=== PATIENT | female | born 2000 | race Caucasian/White ===

== ENCOUNTER 2023-11-03 14:08 | Emergency (ER) | payer SELFPAY ==
[2023-11-03 14:13] VITALS: BP 122/81
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
[2023-11-03] MEDS: MOTRIN 600 MG PO (17:03)
== END 2023-11-03 19:21 | disposition home or self-care (01) ==
LOC: EMR 14:08
PROVIDERS: EMERGENCY PHYSICIAN Emergency Medicine; FAMILY PHYSICIAN Pediatrics
DX: S00.01XA Abrasion of scalp, initial encounter (principal); S09.90XA Unspecified injury of head, initial encounter; S80.212A Abrasion, left knee, initial encounter; S80.02XA Contusion of left knee, initial encounter; V43.52XA Car driver injured in collision with other type car in traffic accident, initial encounter
CPT/HCPCS: 99283

== ENCOUNTER 2024-02-16 09:07 | Emergency (ER) | payer OTHER, SELFPAY ==
[2024-02-16 09:22] VITALS: BP 126/82
--- NOTE | 2024-02-16 10:17 | ED.GENMED ---
History of Present Illness
General
Chief Complaint: Medication Reaction
Source: patient
Exam Limitations: none
Time Seen by Provider: 02/16/24 09:54
History of Present Illness
History of Present Illness:
23 year old female presents with complaints of nausea fatigue and lightheadedness. This started shortly after starting Bactrim for her cyst on the right breast. She states the cyst drained. She feels that is improving. She denies any significant
pain. No measurable fever. She has never had Bactrim before but 3 doses into it she developed the symptoms. She denies a rash otherwise. No other complaints at this time
Past History
Past History
ED Past Medical History: None
ED Past Surgical History: Other (Myringotomy tubes)
Phy Exam
Physical Exam
Physical Exam:
General: Well-appearing female no acute respiratory distress
HEENT: Normocephalic atraumatic
Heart: Regular rate and rhythm no murmur
Lungs: Clear no wheeze
Skin: Erythema noted on the inferior surface of the right breast. No fluctuance or induration. Nontender. There is healing skin in this area
Course
Orders/Labs/Results
Orders:
Orders
02/16/24 10:35
Complete Blood Count/With Diff Urgent
Comprehensive Metabolic Panel Urgent
02/16/24 10:35
02/16/24 10:35
Vital Signs
Initial and Last Documented VS:
Initial Vital Signs
Temp Pulse Resp BP Pulse Ox
97.4 F 77 16 126/82 98
02/16/24 09:22 02/16/24 09:22 02/16/24 09:22 02/16/24 09:22 02/16/24 09:22
Last Documented Vital Signs
Temp Pulse Resp BP Pulse Ox
97.4 F 77 16 126/82 98
02/16/24 09:22 02/16/24 09:22 02/16/24 09:22 02/16/24 09:22 02/16/24 09:22
MDM/Problems Addressed
Differential Diagnosis Includes:
Patient presents with lightheadedness fatigue nausea shortly after starting Bactrim for a cyst on the right breast. There is no evidence of abscess that is drainable on today's exam. Patient believes that her infection is improving. She is never
had Bactrim before symptoms may be related to adverse reactions from Bactrim or potential cellulitis. Will check labs. She is afebrile. If labs are okay consider switching to doxycycline
*Critical Care Note
Total Time (30-74mins, 75-104mins- exclusive of procedures): Not Applicable
Update Note
Update Note:
Labs reviewed and are without any significant finding. Kidney function is normal white count normal. I suspect symptoms today are may be related to back not an infectious process as she noted her infection is improving. Will change Bactrim to
doxycycline. Stable for discharge.
ED Attending Note
-
Portions of this chart may have been created with voice recognition software.� Occasional wrong word or��sound alike� substitutions may have occurred due to the inherent limitations of voice recognition software.
Discharge Plan
Departure
Patient Disposition: Home (Routine Discharge)
Date of Disposition: 02/16/24
Time of Disposition: 11:28
Patient with high blood pressure during this ER visit?: No
Discharge Problem:
Adverse drug reaction, Cellulitis
Instructions: Cellulitis (Skin Infection), Adult ED
Prescriptions:
New
doxycycline hyclate 100 mg tablet
100 mg PO BID Qty: 14 0RF
Referrals:
Sree Mckeon MD [Family Provider] -
Activity Restrictions/Additional Instructions:
Stop Bactrim. Continue with warm compresses to the area. Start doxycycline. Please return here for fever increasing redness pain or other concerning findings
Interventions
Interventions:
*Risk Screen - Suicide Last Done: 02/16/24 09:22
*General Assessment Last Done: 02/16/24 10:45
*Neglect/Abuse Screening Last Done: 02/16/24 09:22
*ED COVID-19 Vaccine History Last Done: 02/16/24 09:22
ED-Skin Assessment Last Done: 02/16/24 10:45
ED- Pulmonary Assessment Last Done: 02/16/24 10:45
Discharge Date and Time
Print Language: LIBERIAN
[2024-02-16 10:47] LABS: % Basophils 0.5 % (0-2); % Eosinophils 2.8 % (0-6); % Immature Granulocytes 0.3 % (0-0.5); % Lymphocytes 29.7 % (20.5-51.1); % Monocytes 5.4 % (1.7-9.3); % Neutrophils 61.3 % (42.2-75.2); Absolute Eosinophils 0.2 10^3/uL (0-0.7); Absolute Lymphocytes 2.3 10^3/uL (1.2-3.4); Absolute Monocytes 0.4 10^3/uL (0.1-0.6); Absolute Neutrophils 4.6 10^3/uL (1.4-6.5); Hematocrit 42.4 % (37.0-47.0); Hemoglobin 14.8 g/dL (12.0-16.0); Mean Corp Hgb Conc. 34.9 g/dL (33.0-37.0); Mean Corpuscular Hgb 28.6 pg (27.0-31.0); Mean Corpuscular Volume 81.9 fL (81.0-99.0); Mean Platelet Volume 10.1 fL (7.4-10.4); Nucleated Red Blood Cells % 0 %; Platelet Count 341 10^3/uL (130-400); Red Blood Cell Count 5.18 10^6/uL (4.20-5.40); Red Cell Dist. Width 12.9 % (11.5-14.5); White Blood Cell Count 7.6 10^3/uL (4.8-10.8)
[2024-02-16 11:01] LABS: ALT (SGPT) 35 U/L (0-35); AST (SGOT) 29 U/L (14-36); Albumin 4.8 g/dl (3.5-5.0); Alkaline Phosphatase 97 U/L (38-126); Blood Urea Nitrogen 10 mg/dl (7-17); Calcium 9.7 mg/dl (8.4-10.2); Carbon Dioxide 22 mmol/L (22-30); Chloride 106 mmol/L (98-107); Glucose 98 mg/dl (70-99); Potassium 4.7 mmol/L (3.5-5.1); Sodium 141 mmol/L (135-145); Total Bilirubin 0.5 mg/dl (0.2-1.3); Total Protein 7.8 g/dl (6.3-8.2); eGFR > 60.00
== END 2024-02-16 11:55 | disposition home or self-care (01) ==
LOC: EMR 09:07
PROVIDERS: Physician Assistant; EMERGENCY PHYSICIAN Emergency Medicine; FAMILY PHYSICIAN Pediatrics
DX: R42 Dizziness and giddiness (principal); T36.8X5A Adverse effect of other systemic antibiotics, initial encounter; L03.90 Cellulitis, unspecified
CPT/HCPCS: 99283; 80053; 85025